=== PATIENT | female | born 1970 | race African-American/Black ===

== ENCOUNTER 2017-01-08 21:55 | Emergency (ER) | payer MEDICAID ==
[~2017-01-08] VITALS: Ht 172.7 cm; Wt 111.0 kg
[2017-01-09 05:10] VITALS: BP 153/83
[2017-01-09] MEDS ORDERED: IBUPROFEN 600MG TABLET PO ONE (05:15)
== END 2017-01-09 05:11 | disposition home or self-care (01) ==
LOC: ER 21:55
DX: J06.9 Acute upper respiratory infection, unspecified (principal); J02.9 Acute pharyngitis, unspecified
CPT/HCPCS: 87070; 99283

== ENCOUNTER 2017-05-10 14:02 | Emergency (ER) | payer MEDICAID ==
[~2017-05-10] VITALS: Ht 172.7 cm; Wt 112.0 kg
[2017-05-10] MEDS ORDERED: TRAMADOL 50MG TABLET PO ONE (18:15)
[2017-05-10 20:03] VITALS: BP 127/71
== END 2017-05-10 19:59 | disposition home or self-care (01) ==
LOC: ER 14:02
DX: M25.562 Pain in left knee (principal); M17.12 Unilateral primary osteoarthritis, left knee
CPT/HCPCS: 73562; 81025; 99284; L1830; Z7610